=== PATIENT | female | born 1970 | race Caucasian/White ===

== ENCOUNTER → 2018-08-16 | Outpatient (CLI) | payer BC ==
[~2018-08-16] MED LIST: FENO145T32 PO; LEVO25TA2 PO; VENL75CA PO
[2018-08-16 09:23] LABS: BASOPHILS # (AUTO) 0.04 x10^3/uL (0-0.1); BASOPHILS % (AUTO) 1 % (0-1); EOSINOPHILS # (AUTO) 0.18 x10^3/uL (0-0.4); EOSINOPHILS % (AUTO) 2 % (1-7); LYMPHOCYTES # (AUTO) 1.98 x10^3/uL (1-3.4); LYMPHOCYTES % (AUTO) 24 % (22-44); MD NO; MEAN CORPUSCULAR HEMOGLOBIN 31.3 pg (27.0-34.8); MEAN CORPUSCULAR HGB CONC 33.8 g/dL (32.4-35.8); MEAN CORPUSCULAR VOLUME 92.6 fL (80-100); MEAN PLATELET VOLUME 8.3 fL (7.4-10.4); MONOCYTES # (AUTO) 0.74 x10^3/uL (0.2-0.8); MONOCYTES % (AUTO) 9 % (2-9); NEUTROPHILS # (AUTO) 5.36 x10^3/uL (1.8-6.8); NEUTROPHILS % (AUTO) 65 % (42-75); PLATELET COUNT 275 x10^3/uL (130-400); RED BLOOD COUNT 4.48 x10^6/uL (3.82-5.3); RED CELL DISTRIBUTION WIDTH 12.7 % (9.6-15.2)
[2018-08-16 09:46] LABS: MICROSCOPIC NOT IND
[2018-08-16 09:50] LABS: CULTURE INDICATED? NO
== END | disposition home or self-care (01) ==
LOC: STAR 08:15
PROVIDERS: ATTEND Obstetrics & Gynecology
DX: N84.0 Polyp of corpus uteri (principal); N92.0 Excessive and frequent menstruation with regular cycle
CPT/HCPCS: 36415; 81003; 84702; 85025

== ENCOUNTER 2018-08-26 05:20 | Day surgery (SDC) | payer BC ==
[~2018-08-26] VITALS: Ht 167.6 cm; Wt 93.3 kg
[2018-08-26] MEDS ORDERED: LACTATED RINGERS 1,000 ML IV SCH (06:11)
[2018-08-26] MEDS ORDERED: ACETAMINOPHEN 500 MG TABLET PO ONE (06:30)
[2018-08-26] MEDS ORDERED: GABAPENTIN 300 MG CAPSULE PO ONE (06:30)
[2018-08-26 06:33] VITALS: BP 119/79
[2018-08-26] MEDS ORDERED: FENTANYL PF 250 MCG/5ML ONE (06:37)
[2018-08-26] MEDS ORDERED: MIDAZOLAM 1 MG/ML, 2ML ONE (06:37)
[2018-08-26] MEDS ORDERED: SILVER NITRATE STICK TP ONE (07:16)
[2018-08-26] MEDS ORDERED: EPINEPHRINE 1 MG/ML, 1ML ONE (07:16)
[2018-08-26] MEDS ORDERED: BUPIVACAINE/PF 0.25% ONE (07:16)
[2018-08-26] MEDS ORDERED: ONDANSETRON ODT 8 MG PO PRN (07:30)
[2018-08-26] MEDS ORDERED: PROMETHAZINE 25 MG/ML, 1ML IM PRN ×2 (07:30)
[2018-08-26] MEDS ORDERED: MEPERIDINE/PF 25MG/0.5ML IVPush PRN (07:30)
[2018-08-26] MEDS ORDERED: OXYcodone 5 MG/5 ML ORAL.SOL UDC PO PRN (07:30)
[2018-08-26] MEDS ORDERED: HYDROmorphone 2 MG/ML, 1ML IVPush PRN (07:30)
[2018-08-26] MEDS ORDERED: PROMETHAZINE 12.5 MG SUPP PR PRN (07:30)
[2018-08-26] MEDS ORDERED: ONDANSETRON 2MG/ML, 2ML IV PRN (07:30)
[2018-08-26] MEDS ORDERED: LABETALOL 5MG/ML, 20ML IV PRN (07:30)
[2018-08-26] MEDS ORDERED: PROMETHAZINE 25 MG SUPP PR PRN (07:30)
[2018-08-26] MEDS ORDERED: hydrALAzine 20 MG/ML, 1ML IV PRN (07:30)
[2018-08-26] MEDS ORDERED: MORPHINE SULFATE 4 MG/ML, 1ML IVPush PRN (07:30)
[2018-08-26] MEDS ORDERED: PROMETHAZINE 25 MG/ML, 1ML IV PRN (07:30)
[2018-08-26] MEDS ORDERED: HALOPERIDOL 5 MG/ML IV PRN (07:30)
[2018-08-26] MEDS ORDERED: BUPIVACAINE/PF-EPI 0.5% 1:200K INFIL ONE (07:45)
[2018-08-26] MEDS ORDERED: DEXAMETHASONE 4 MG/ML, 1ML ONE ×2 (07:46)
[2018-08-26] MEDS ORDERED: EPINEPHRINE 1 MG/ML, 1ML INFIL ONE (07:46)
[2018-08-26] MEDS ORDERED: PROPOFOL 10 MG/ML, 20ML ONE (07:46)
[2018-08-26] MEDS ORDERED: ONDANSETRON 2MG/ML, 2ML ONE (07:46)
[2018-08-26] MEDS ORDERED: CEFAZOLIN 1,000 MG ONE ×2 (07:46)
[2018-08-26] MEDS ORDERED: KETOROLAC 30 MG/1 ML ONE (07:50)
[2018-08-26] MEDS ORDERED: FENTANYL PF 100 MCG/2ML ONE ×2 (08:10→08:34)
[2018-08-26] MEDS: FENTANYL PF 100 MCG/2ML IV PRN ×4 (08:13→08:43)
== END 2018-08-26 10:25 | disposition home or self-care (01) ==
LOC: OUT 05:20
PROVIDERS: ATTEND Obstetrics & Gynecology
DX: N84.0 Polyp of corpus uteri (principal); N92.0 Excessive and frequent menstruation with regular cycle; N94.6 Dysmenorrhea, unspecified; F32.9 Major depressive disorder, single episode, unspecified; E03.9 Hypothyroidism, unspecified; E78.00 Pure hypercholesterolemia, unspecified; Z98.51 Tubal ligation status; Z98.890 Other specified postprocedural states; Z88.0 Allergy status to penicillin; Z88.8 Allergy status to other drugs, medicaments and biological substances
CPT/HCPCS: 58563; 88305; J0171; J0690; J1100; J1885; J2250; J2405; J2704; J3010; J3490; J7120